=== PATIENT | female | born 1970 | race Caucasian/White ===

== ENCOUNTER 2017-09-14 08:14 | Inpatient (IN) | payer MEDICAID, OTHER ==
[~2017-09-14] VITALS: Ht 170.2 cm; Wt 50.0 kg
[2017-09-14 08:16] VITALS: BP 132/63; PULSE 89; RESP 18; TEMP 98; O2SAT 100
[2017-09-14] MEDS ORDERED: QUET1TAB8 PO (08:31)
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
[2017-09-14 10:11] LABS: AUTOMATED NEUTROPHIL # 7.4 TH/MM3 (1.8-7.7); BASOPHIL % 0.5 % (0.0-2.0); EOSINOPHIL % 0.2 % (0.0-4.0); HEMATOCRIT 45.1 % (35.0-46.0); HEMOGLOBIN 15.6 GM/DL (11.6-15.3); LYMPH % 13.9 % (9.0-44.0); LYMPHOCYTE # 1.3 TH/MM3 (1.0-4.8); MEAN CELL VOLUME 91.6 FL (80.0-100.0); MEAN CORPUSCULAR HEMOGLOBIN 31.6 PG (27.0-34.0); MEAN CORPUSCULAR HGB CONC 34.5 % (32.0-36.0); MEAN PLATELET VOLUME 11.8 FL (7.0-11.0); MONO % 7.1 % (0.0-8.0); MONOCYTE # 0.7 TH/MM3 (0-0.9); NEUT % 78.3 % (16.0-70.0); PLATELET COUNT 231 TH/MM3 (150-450); RED BLOOD COUNT 4.93 MIL/MM3 (4.00-5.30); RED CELL DISTRIBUTION WIDTH 13.9 % (11.6-17.2); WHITE BLOOD COUNT 9.4 TH/MM3 (4.0-11.0)
[2017-09-14 10:29] LABS: BICARBONATE 24.5 MEQ/L (21.0-32.0); BLOOD UREA NITROGEN 5 MG/DL (7-18); CHLORIDE 106 MEQ/L (98-107); CREATININE 0.65 MG/DL (0.50-1.00); GLOMERULAR FILTRATION RATE 99 ML/MIN (>89); GLUCOSE,RANDOM 95 MG/DL (74-106); SODIUM (NA) 140 MEQ/L (136-145)
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
[2017-09-14] MEDS ORDERED: MAGNESIUM HYDROXIDE SUSP 30 ML CUP PO PRN (12:45)
[2017-09-14] MEDS ORDERED: ACETAMINOPHEN 325 MG TAB PO PRN (12:45)
[2017-09-14] MEDS ORDERED: ALUMINUM/MAGNESIUM/SIMETH 30 ML CUP PO PRN (12:45)
[2017-09-14 13:28] VITALS: BP 117/82; PULSE 74; RESP 18; TEMP 97.6; O2SAT 99
[2017-09-14 17:53] VITALS: BP 129/98; PULSE 106; RESP 17; TEMP 98.4; O2SAT 97
[2017-09-15 06:43] VITALS: BP 125/73; PULSE 82; RESP 17; TEMP 97.1; O2SAT 98
[2017-09-15 10:13] LABS: BICARBONATE 24.6 MEQ/L (21.0-32.0); BLOOD UREA NITROGEN 6 MG/DL (7-18); CALCIUM 8.9 MG/DL (8.5-10.1); CHLORIDE 104 MEQ/L (98-107); CREATININE 0.74 MG/DL (0.50-1.00); GLOMERULAR FILTRATION RATE 85 ML/MIN (>89); GLUCOSE,RANDOM 102 MG/DL (74-106); SODIUM (NA) 139 MEQ/L (136-145)
[2017-09-15 10:14] LABS: CHOLESTEROL 121 MG/DL (120-200); TRIGLYCERIDES 39 MG/DL (42-150)
[2017-09-15 10:16] LABS: CHOLESTEROL/ HDL RATIO 1.59 RATIO; HDL CHOLESTEROL 76.1 MG/DL (40.0-60.0); LDL CHOLESTEROL 37 MG/DL (0-99)
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
[2017-09-15 13:58] LABS: ALBUMIN 4.1 GM/DL (3.4-5.0); DIRECT BILIRUBIN ADULT 0.2 MG/DL (0.0-0.2)
[2017-09-15 14:09] LABS: INDIRECT BILIRUBIN 0.7 MG/DL (0.0-0.8); TOTAL BILIRUBIN ADULT 0.9 MG/DL (0.2-1.0); TOTAL PROTEIN 7.4 GM/DL (6.4-8.2)
[2017-09-15] MEDS ORDERED: BENZTROPINE MESYLATE 1 MG TAB PO PRN (14:30)
[2017-09-15] MEDS ORDERED: BENZTROPINE MESYLATE 2 MG/2 ML VIAL IM PRN (14:30)
[2017-09-15] MEDS ORDERED: LORazepam 2 MG/ML VIAL IM PRN (14:30)
[2017-09-15] MEDS ORDERED: LORazepam 1 MG TAB PO PRN (14:30)
--- NOTE | 2017-09-15 15:54 | PD.PSY.CON ---
Provisional Diagnosis Admission Date Sep 14, 2017 at 12:37 [place] I. 1. Bipolar disorder, presently manic, severe with psychotic features [place] II. Deferred History of Present Illness Service Psychiatry Consult Requested By Psychiatry Reason for Consult Second opinion Primary Care Physician Ady Suarez MD HPI Ms. Ingram is a 46-year-old female with a reported history of previous episodes of adriana who was brought into the ED by . According to ED provider notes, the patient endeavored to shoot herself. Patient was placed under Garcia act by ED provider. Patient was seen and evaluated by the psychiatric nurse practitioner in the ED. Reviewing the electronic medical record, it appears this is patient's first visit to [facility].Patient seen and examined with counselor and nurse. Chart reviewed. Case discussed with nursing staff. On my examination today, the patient presents with pressured speech. She is fairly hyperkinetic, distractible and somewhat impulsive. Affect is expansive with underlying irritability. The patient tells me that "out of the blue I could not sleep 18 days ago. I could sleep my body, but couldn't sleep my brain." Patient reports that she began experiencing racing thoughts. She reports that after several nights without sleep, she began to hear "other sounds" in the fan in her bedroom. She reports that these sounds crescendoed over succeeding days until "I was hearing a whole band playing in my fan." She reports that she sought assistance from PCP who tried Restoril and a medication beginning with "ox." This was ineffective and so PCP switched to Vraylar, also ineffective. She finally saw a psychiatrist at [facility] who started some Seroquel with some benefit. However, patient reports this was too little too late, and "after 16 days with no sleep, I felt some other being with me." She says that she felt this other being was inside her and was malign , and so she tried to shoot herself to rid herself of this other being. She denies any ongoing suicidal or homicidal ideation presently but seems decidedly unreliable to contract for safety. No depressive symptoms. No reported audiovisual hallucinations presently, although the patient does appear internally preoccupied. She says that she no longer believes that there is some other being inside her, but I am not convinced in the context of our interaction that this is in fact the case. The remainder of the psychiatric ROS is negative. No acute physical complaints. The patient is a 50-year-old woman, domiciled in [place] with her , unemployed, with psychiatric history of depression of bipolar disorder, 2 previous psychiatric hospitalizations, no significant medical history, who was brought to the hospital by her was Garcia acted by ER provider due to a manic episode. Patient was consulted to me for second opinion. The patient was found calm, cooperative, but a little elevated. The patient reports that she does not really remember the reason she is here. However she says that she has been 16 days manic and without sleeping. Patient states that she needs to be on medication and gets stabilized "if no I will get crazy". Patient is compliant with medications, no surgical side effects, oriented 3. She denies suicidal enemas ideation, she denies visual and auditory hallucinations. Review of Systems Constitutional: DENIES: Diaphoretic episodes, Fatigue, Fever, Weight gain, Weight loss, Chills, Dizziness, Change in appetite, Night Sweats Endocrine: DENIES: Abnorml menstrual pattern, Heat/cold intolerance, Polydipsia , Polyuria, Polyphagia Eyes: DENIES: Blurred vision, Diplopia, Eye inflammation, Eye pain, Vision loss , Photosensitivity, Double Vision Ears, nose, mouth, throat: DENIES: Tinnitus, Hearing loss, Vertigo, Nasal discharge, Oral lesions, Throat pain, Hoarseness, Ear Pain, Running Nose, Epistaxis, Sinus Pain, Toothache, Odynophagia Respiratory: DENIES: Apneas, Cough, Snoring, Wheezing, Hemoptysis, Sputum production, Shortness of breath Cardiovascular: DENIES: Chest pain, Palpitations, Syncope, Dyspnea on Exertion , PND, Lower Extremity Edema, Orthopnea, Claudication Gastrointestinal: DENIES: Abdominal pain, Black stools, Bloody stools, Constipation, Diarrhea, Nausea, Vomiting, Difficulty Swallowing, Anorexia Genitourinary: DENIES: Abnormal vaginal bleeding, Dysmenorrhea, Dyspareunia, Sexual dysfunction, Urinary frequency, Urinary incontinence, Urgency, Hematuria , Dysuria, Nocturia, Vaginal discharge Musculoskeletal: DENIES: Joint pain, Muscle aches, Stiffness, Joint Swelling, Back pain, Neck pain Integumentary: DENIES: Abnormal pigmentation, Pruritus, Rash, Nail changes, Breast masses, Breast skin changes, Nipple discharge Hematologic/lymphatic: DENIES: Bruising, Lymphadenopathy Immunologic/allergic: DENIES: Eczema, Urticaria Neurologic: DENIES: Abnormal gait, Headache, Localized weakness, Paresthesias, Seizures, Speech Problems, Tremor, Poor Balance Psychiatric: COMPLAINS OF: Mood changes, DENIES: Anxiety, Confusion, Depression , Hallucinations, Agitation, Suicidal Ideation, Homicidal Ideation, Delusions Past Family Social History Coded Allergies: No Known Allergies (Verified Allergy, Unknown, 09/14/17) Reported Medications Quetiapine (Quetiapine) 100 Mg Tab, 100 MG PO DAILY for Insomnia, TAB 0 Refills 09/14/17 Current Medications Medications (Trade) Dose Ordered Sig/Alon Route Start Time Stop Time Status Last Admin (Tylenol) 650 mg Q4H PRN PO 09/14/17 12:45 (Milk Of Magnesia Liq) 30 ml DAILY PRN PO 09/14/17 12:45 (Mag-Al Plus Susp Liq) 30 ml Q6H PRN PO 09/14/17 12:45 (Lithotabs) 300 mg DAILY@0900,1500,2100 PO 09/15/17 21:00 (SEROquel) 100 mg BID PO 09/15/17 21:00 (Ativan) 1 mg Q6H PRN PO 09/15/17 14:30 (Ativan Inj) 1 mg Q6H PRN IM 09/15/17 14:30 (Cogentin) 1 mg Q12HR PRN PO 09/15/17 14:30 (Cogentin Inj) 1 mg Q12HR PRN IM 09/15/17 14:30 (Benadryl) 50 mg HS PRN PO 09/15/17 14:30 Patient's Strengths (min. 2) In a monitored setting. Verbally fluent. Physical Exam Vital Signs Vital Signs Date Time Temp Pulse Resp B/P (MAP) Pulse Ox O2 Delivery O2 Flow Rate FiO2 09/15/17 06:43 97.1 82 17 125/73 (90) 98 Lab Results Test 09/15/17 08:45 Blood Urea Nitrogen 6 MG/DL Creatinine 0.74 MG/DL Random Glucose 102 MG/DL Calcium Level 8.9 MG/DL Sodium Level 139 MEQ/L Potassium Level 3.7 MEQ/L Chloride Level 104 MEQ/L Carbon Dioxide Level 24.6 MEQ/L Anion Gap 10 MEQ/L Estimat Glomerular Filtration Rate 85 ML/MIN Total Bilirubin 0.9 MG/DL Direct Bilirubin 0.2 MG/DL Indirect Bilirubin 0.7 MG/DL Aspartate Amino Transf (AST/SGOT) 13 U/L Alanine Aminotransferase (ALT/SGPT) 22 U/L Alkaline Phosphatase 39 U/L Total Protein 7.4 GM/DL Albumin 4.1 GM/DL Triglycerides Level 39 MG/DL Cholesterol Level 121 MG/DL LDL Cholesterol 37 MG/DL HDL Cholesterol 76.1 MG/DL Cholesterol/HDL Ratio 1.59 RATIO Vitamin B12 Level 608 PG/ML Beta HCG, Qualitative LESS THAN 1 MIU/ML Mental Status Examination Appearance: Other (Fair grooming and hygiene) Consciousness: Alert Orientation: Person, Place (At least) Motor Activity: Normal gait Speech: Unremarkable Language: Adequate Fund of Knowledge: Adequate Attention and Concentration: Easily Distracted Memory: Impaired Mood: Manic Affect: Irritable, Other (Expansive) Thought Process & Associations: Loose associations Thought Content: Hallucinations, Delusional Hallucination Type: Auditory Delusion Type: Paranoid Suicidal Ideation: No (Unreliable to contract for safety) Suicidal Plan: No Suicidal Intention: No Homicidal Ideation: No Homicidal Plan: No Homicidal Intention: No Insight: Poor Judgment: Poor Assessment & Plan Problem List: (1) Bipolar disorder, current episode manic severe with psychotic features ICD Codes: F31.2 - Bipolar disorder, current episode manic severe with psychotic features Assessment & Plan: I have seen and examined this patient, reviewed documentation, I agree and concur with Dr. Pinedo assessment and plan Assessment & Plan Estimated LOS: days Request HC Surrog/Guard Advoc?: Yes Tejas Haines MD Sep 15, 2017 15:54
[2017-09-15 17:10] LABS: HEMOGLOBIN A1C 4.7 % (4.3-6.0)
[2017-09-15] MEDS: QUEtiapine FUMARATE 100 MG TAB PO SCH (20:51)
[2017-09-15] MEDS: LITHIUM CARBONATE 300 MG TAB PO SCH (20:51)
[2017-09-16 06:30] VITALS: BP 131/74; PULSE 95; RESP 16; TEMP 98.9
[2017-09-16] MEDS: QUEtiapine FUMARATE 100 MG TAB PO SCH (08:20)
[2017-09-16] MEDS: LITHIUM CARBONATE 300 MG TAB PO SCH ×3 (08:20→21:09)
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
[2017-09-16] MEDS ORDERED: PADIMATE (CHAPSTICK) 4.5 GM TUBE TOPICAL PRN (14:00)
[2017-09-16] MEDS ORDERED: PILL SPLITTER OTHER PRN (14:00)
[2017-09-16 18:21] VITALS: BP 130/70; PULSE 72; RESP 18; TEMP 98.3; O2SAT 98
[2017-09-16] MEDS ORDERED: QUEtiapine FUMARATE 100 MG TAB PO SCH (21:00)
[2017-09-17 06:31] VITALS: BP 104/79; PULSE 92; RESP 18; TEMP 98; O2SAT 97
[2017-09-17] MEDS: QUEtiapine FUMARATE 100 MG TAB PO SCH (08:58)
[2017-09-17] MEDS: LITHIUM CARBONATE 300 MG TAB PO SCH ×3 (08:58→21:22)
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
[2017-09-17 18:57] VITALS: BP 110/68; PULSE 80; RESP 16; TEMP 98.4; O2SAT 97
[2017-09-17] MEDS ORDERED: QUEtiapine FUMARATE 100 MG TAB PO SCH (21:00)
[2017-09-18 06:28] VITALS: BP 106/65; PULSE 96; RESP 14; TEMP 97.6; O2SAT 97
[2017-09-18] MEDS: QUEtiapine FUMARATE 100 MG TAB PO SCH (08:07)
[2017-09-18] MEDS: LITHIUM CARBONATE 300 MG TAB PO SCH ×3 (08:07→20:53)
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
[2017-09-18] MEDS ORDERED: BISACODYL EC 5 MG TABEC PO PRN (15:30)
[2017-09-18 17:56] VITALS: BP 105/69; PULSE 82; RESP 16; TEMP 97.6; O2SAT 97
[2017-09-18] MEDS: DOCUSATE SODIUM 100 MG CAP PO SCH (20:52)
[2017-09-18] MEDS ORDERED: QUEtiapine FUMARATE 100 MG TAB PO SCH (21:00)
[2017-09-19 05:42] VITALS: BP 105/56; PULSE 62; RESP 18; TEMP 98.1; O2SAT 99
[2017-09-19 06:20] VITALS: BP 105/56; PULSE 69; RESP 18; TEMP 98.1; O2SAT 99
[2017-09-19 08:49] LABS: BICARBONATE 23.4 MEQ/L (21.0-32.0); CALCIUM 8.7 MG/DL (8.5-10.1); CREATININE 0.65 MG/DL (0.50-1.00)
[2017-09-19] MEDS: LITHIUM CARBONATE 300 MG TAB PO SCH ×2 (10:13→14:50)
[2017-09-19] MEDS: DOCUSATE SODIUM 100 MG CAP PO SCH ×2 (10:13→20:31)
[2017-09-19] MEDS: QUEtiapine FUMARATE 100 MG TAB PO SCH ×2 (10:13→14:50)
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
[2017-09-19 17:31] VITALS: BP 115/73; PULSE 71; RESP 20; TEMP 98.3; O2SAT 100
[2017-09-19] MEDS ORDERED: LITHIUM CARBONATE 300 MG TAB PO SCH (18:00)
[2017-09-19] MEDS: LITHIUM CARBONATE 300 MG CAP PO SCH (20:31)
[2017-09-19] MEDS: QUEtiapine FUMARATE 200 MG TAB PO SCH (20:31)
[2017-09-20 05:28] VITALS: PULSE 65; RESP 17; TEMP 97.8; O2SAT 96
[2017-09-20 05:29] VITALS: BP 100/67; PULSE 96; RESP 17; TEMP 97.8; O2SAT 96
[2017-09-20] MEDS: DOCUSATE SODIUM 100 MG CAP PO SCH ×2 (08:43→20:51)
[2017-09-20] MEDS: QUEtiapine FUMARATE 100 MG TAB PO SCH ×2 (08:43→15:07)
[2017-09-20] MEDS: LITHIUM CARBONATE 300 MG TAB PO SCH ×2 (08:43→15:07)
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
[2017-09-20 17:19] VITALS: BP 129/60; PULSE 70; RESP 17; TEMP 98.4; O2SAT 98
[2017-09-20] MEDS: QUEtiapine FUMARATE 200 MG TAB PO SCH (20:51)
[2017-09-20] MEDS: diphenhydrAMINE HCL 50 MG CAP PO PRN ×2 (20:51→20:53)
[2017-09-20] MEDS: LITHIUM CARBONATE 300 MG CAP PO SCH (20:51)
[2017-09-21 06:12] VITALS: BP 106/65; PULSE 86; RESP 17; TEMP 97.6; O2SAT 98
[2017-09-21] MEDS: QUEtiapine FUMARATE 100 MG TAB PO SCH ×2 (09:02→15:01)
[2017-09-21] MEDS: DOCUSATE SODIUM 100 MG CAP PO SCH ×2 (09:02→20:52)
[2017-09-21] MEDS: LITHIUM CARBONATE 300 MG TAB PO SCH ×2 (09:02→15:01)
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
[2017-09-21 16:57] VITALS: BP 107/63; PULSE 78; RESP 17; TEMP 97.2; O2SAT 99
[2017-09-21] MEDS: LITHIUM CARBONATE 300 MG CAP PO SCH (20:52)
[2017-09-21] MEDS: QUEtiapine FUMARATE 200 MG TAB PO SCH (20:53)
[2017-09-22 06:10] VITALS: BP 95/60; PULSE 71; RESP 16; TEMP 97.7; O2SAT 95
[2017-09-22] MEDS: DOCUSATE SODIUM 100 MG CAP PO SCH (08:38)
[2017-09-22] MEDS: QUEtiapine FUMARATE 100 MG TAB PO SCH ×2 (08:38→15:23)
[2017-09-22] MEDS: LITHIUM CARBONATE 300 MG TAB PO SCH ×2 (08:39→15:23)
[2017-09-22 11:18] LABS: BICARBONATE 25.2 MEQ/L (21.0-32.0); CALCIUM 8.7 MG/DL (8.5-10.1); CREATININE 0.64 MG/DL (0.50-1.00)
[2017-09-22] MEDS ORDERED: LITH300T3 PO (17:15)
[2017-09-22] MEDS ORDERED: LITH300C2 PO (17:15)
[2017-09-22] MEDS ORDERED: QUET1TAB8 PO (17:15)
[2017-09-22] MEDS ORDERED: QUET1TAB9 PO (17:15)
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
== END 2017-09-22 17:45 | disposition home or self-care (01) | DRG 885 ==
LOC: NEPD 08:14 → NEDA 12:37 → H260 13:10 → H270 16:14 → H260 09-16 14:15
PROVIDERS: ADMIT Psychiatry & Neurology Psychiatry; ATTEND Psychiatry & Neurology Psychiatry
DX: F31.2 Bipolar disorder, current episode manic severe with psychotic features (principal); R45.851 Suicidal ideations; K59.00 Constipation, unspecified; F42.9 Obsessive-compulsive disorder, unspecified; F41.9 Anxiety disorder, unspecified; Z91.5 Personal history of self-harm; Z81.8 Family history of other mental and behavioral disorders
CPT/HCPCS: 80048; 80061; 80076; 80178; 80307; 82607; 83036; 84443; 84703; 85025; 99285; Q0163